=== PATIENT | female | born 2000 | race African-American/Black ===

== ENCOUNTER 2024-05-14 11:10 | Emergency (ER) | payer BC, MEDICAID, OTHER ==
[~2024-05-14] VITALS: Ht 162.6 cm; Wt 52.2 kg
[2024-05-14 12:00] VITALS: BP 117/69; TEMP 98.5; O2SAT 98
== END 2024-05-14 13:02 | disposition home or self-care (01) ==
LOC: ER 11:25
DX: L73.2 Hidradenitis suppurativa (principal); Z48.01 Encounter for change or removal of surgical wound dressing; Z88.8 Allergy status to other drugs, medicaments and biological substances